=== PATIENT | female | born 1985 | race Caucasian/White ===

== ENCOUNTER → 2018-11-23 | Outpatient (CLI) | payer OTHER ==
[~2018-11-23] MED LIST: FISH OIL500 MG PO; FLEXERIL 1010 MG/TAB PO; NEXIUM 40MG40 MG PO; NEXPLANON68 MG ID; ONE DAILY1 TA1 PO
== END ==
LOC: MC.RAD 09:45
DX: N63.10 Unspecified lump in the right breast, unspecified quadrant (principal)